=== PATIENT | male | born 1985 | race Caucasian/White ===

== ENCOUNTER 2017-02-05 22:42 | Emergency (ER) | payer SELFPAY ==
[~2017-02-05] VITALS: Ht 185.4 cm; Wt 77.2 kg
[~2017-02-05 22:42] MED LIST: Z.0.NO CURRENT MEDS
[2017-02-05 22:47] VITALS: BP 131/73; PULSE 96; RESP 18; TEMP 97.4; O2SAT 94
[2017-02-05 23:12] VITALS: BP 151/78; PULSE 100; RESP 12; O2SAT 94
[2017-02-05] MEDS ORDERED: SODIUM CHLORIDE 0.9% FLUSH 5 ML FLUSH IVF PRN (23:15)
--- NOTE | 2017-02-05 23:17 | PD ---
HPI Chief Complaint: Psychiatric Symptoms Time Seen by Provider: 23:01 Travel History International Travel<30 days: No Contact w/Intl Traveler<30days: No Traveled to known affect area: No History of Present Illness HPI Patient is a 31-year-old male who presents to emergency room for psychiatric evaluation. Patient reports that he is an alcoholic, reports that he is a danger to himself as well as others, patient currently requesting help. Patient denies active SI, reports that "I'm just danger to myself and to others if I do not get help with my drinking." Denies use of any other drugs at this time. Patient with no other complaints. PFSH Past Medical History Anxiety: Yes Depression: Yes Musculoskeletal: Yes (BACK PROBLEMS) Psychiatric: Yes Social History Alcohol Use: Yes (OCCASIONALLY DRINKS A 6 PACK) Tobacco Use: Yes (1PPD) Substance Use: Yes (COCAINE YESTERDAY, USES APPROX Q2WKS, HASN'T DONE WEED IN AWHILE.) Allergies-Medications (Allergen,Severity, Reaction): Coded Allergies: No Known Allergies (Verified , 02/05/17) Reported Meds & Prescriptions Reported Meds & Active Scripts Active Reported No Current Meds (Miscellaneous Medication) Misc Review of Systems General / Constitutional: No: Fever Eyes: No: Visual changes HENT: No: Headaches Cardiovascular: No: Chest Pain or Discomfort Respiratory: No: Shortness of Breath Gastrointestinal: No: Abdominal Pain Genitourinary: No: Dysuria Musculoskeletal: No: Pain Skin: No Rash Neurologic: No: Weakness Psychiatric: Positive: Depression, Suicidal Ideations, Mood Disorder, Substance Abuse, Homicidal Ideation Endocrine: No: Polydipsia Hematologic/Lymphatic: No: Easy Bruising Physical Exam Narrative GENERAL: No acute distress, nontoxic SKIN: Warm and dry. HEAD: Atraumatic. Normocephalic. EYES: Pupils equal and round. No scleral icterus. No injection or drainage. ENT: No nasal bleeding or discharge. Mucous membranes pink and moist. NECK: Trachea midline. No JVD. CARDIOVASCULAR: Regular rate and rhythm. No murmur appreciated. RESPIRATORY: No accessory muscle use. Clear to auscultation. Breath sounds equal bilaterally. GASTROINTESTINAL: Abdomen soft, non-tender, nondistended. Hepatic and splenic margins not palpable. MUSCULOSKELETAL: No obvious deformities. No clubbing. No cyanosis. No edema. NEUROLOGICAL: Awake and alert. No obvious cranial nerve deficits. Motor grossly within normal limits. Normal speech. PSYCHIATRIC: Patient with suicidal and homicidal ideations, patient intoxicated Data Data Last Documented VS Vital Signs Date Time Temp Pulse Resp B/P Pulse Ox O2 Delivery O2 Flow Rate FiO2 02/05/17 23:12 100 12 151/78 94 Room Air 02/05/17 22:47 97.4 Orders Complete Blood Count With Diff (02/05/17 23:12) Comprehensive Metabolic Panel (02/05/17 23:12) Iv Access Insert/Monitor (02/05/17 23:12) Psych Screen (02/05/17 23:12) Sodium Chloride 0.9% Flush (Ns Flush) (02/05/17 23:15) Drug Screen, Random Urine (02/05/17 23:12) Alcohol (Ethanol) (02/05/17 23:12) Labs Laboratory Tests Test 02/05/17 23:25 White Blood Count 8.2 TH/MM3 Red Blood Count 4.01 MIL/MM3 Hemoglobin 14.4 GM/DL Hematocrit 41.3 % Mean Corpuscular Volume 103.1 FL Mean Corpuscular Hemoglobin 35.8 PG Mean Corpuscular Hemoglobin 34.7 % Concent Red Cell Distribution Width 12.6 % Platelet Count 250 TH/MM3 Mean Platelet Volume 6.7 FL Neutrophils (%) (Auto) 40.7 % Lymphocytes (%) (Auto) 45.9 % Monocytes (%) (Auto) 7.5 % Eosinophils (%) (Auto) 5.0 % Basophils (%) (Auto) 0.9 % Neutrophils # (Auto) 3.3 TH/MM3 Lymphocytes # (Auto) 3.8 TH/MM3 Monocytes # (Auto) 0.6 TH/MM3 Eosinophils # (Auto) 0.4 TH/MM3 Basophils # (Auto) 0.1 TH/MM3 CBC Comment DIFF FINAL Differential Comment Urine Opiates Screen NEG Urine Barbiturates Screen NEG Urine Amphetamines Screen NEG Urine Benzodiazepines Screen NEG Urine Cocaine Screen NEG Urine Cannabinoids Screen POS Sodium Level 143 MEQ/L Potassium Level 4.2 MEQ/L Chloride Level 109 MEQ/L Carbon Dioxide Level 24.0 MEQ/L Anion Gap 10 MEQ/L Blood Urea Nitrogen 20 MG/DL Creatinine 2.00 MG/DL Estimat Glomerular Filtration 39 ML/MIN Rate Random Glucose 107 MG/DL Calcium Level 8.1 MG/DL Total Bilirubin 0.1 MG/DL Aspartate Amino Transf 33 U/L (AST/SGOT) Alanine Aminotransferase 41 U/L (ALT/SGPT) Alkaline Phosphatase 57 U/L Total Protein 7.2 GM/DL Albumin 3.6 GM/DL Ethyl Alcohol Level 262 MG/DL MDM Medical Decision Making Medical Screen Exam Complete: Yes Emergency Medical Condition: Yes Interpretation(s) Vital Signs Date Time Temp Pulse Resp B/P Pulse Ox O2 Delivery O2 Flow Rate FiO2 02/05/17 22:47 97.4 96 18 131/73 94 Differential Diagnosis Alcohol intoxication, drug abuse, suicidal ideations, homicidal ideations Narrative Course Patient is a 31-year-old alcoholic who presents to emergency room for psychiatric evaluation. Patient feels that his alcoholism makes him a danger to himself as well as to others. Patient here for psychiatric evaluation. Psychiatric labs ordered, will have patient see screeners once medically cleared Diagnosis Primary Impression: Alcohol abuse Additional Impressions: Depression Qualified Code: F32.9 - Depression, unspecified depression type Suicidal ideation Homicidal ideation Renal insufficiency Drug abuse Alcohol intoxication Qualified Code: F10.120 - Alcohol intoxication, uncomplicated Patient Instructions: General Instructions Additional Instructions: Please follow-up with your primary care doctor as soon as possible Return to emergency room as needed Please stop drinking alcohol and abusing drugs Adriana Lan DO Feb 05, 2017 23:17 Adriana Lan DO Feb 05, 2017 23:17
[2017-02-05 23:40] LABS: AUTOMATED NEUTROPHIL # 3.3 TH/MM3 (1.8-7.7); BASOPHIL # 0.1 TH/MM3 (0-0.2); BASOPHIL % 0.9 % (0.0-2.0); EOSINOPHIL # 0.4 TH/MM3 (0-0.4); HEMATOCRIT 41.3 % (39.0-51.0); HEMO FLAGS DIFF FINAL; LYMPH % 45.9 % (9.0-44.0); LYMPHOCYTE # 3.8 TH/MM3 (1.0-4.8); MEAN CELL VOLUME 103.1 FL (80.0-100.0); MEAN CORPUSCULAR HEMOGLOBIN 35.8 PG (27.0-34.0); MEAN CORPUSCULAR HGB CONC 34.7 % (32.0-36.0); MONO % 7.5 % (0.0-8.0); NEUT % 40.7 % (16.0-70.0); PLATELET COUNT 250 TH/MM3 (150-450); RED BLOOD COUNT 4.01 MIL/MM3 (4.50-5.90); RED CELL DISTRIBUTION WIDTH 12.6 % (11.6-17.2); WHITE BLOOD COUNT 8.2 TH/MM3 (4.0-11.0)
[2017-02-05 23:45] LABS: AMPHETAMINE, URINE NEG (NEG); BARBITURATES, URINE NEG (NEG); COCAINE, URINE NEG (NEG)
[2017-02-05 23:55] LABS: ANION GAP 10 MEQ/L (5-15)
[2017-02-05 23:59] LABS: ALKALINE PHOSPHATASE 57 U/L (45-117); ALT (GPT) 41 U/L (12-78); AST (GOT) 33 U/L (15-37); BLOOD UREA NITROGEN 20 MG/DL (7-18); CHLORIDE 109 MEQ/L (98-107); GLOMERULAR FILTRATION RATE 39 ML/MIN (>89); POTASSIUM 4.2 MEQ/L (3.5-5.1); SODIUM (NA) 143 MEQ/L (136-145); TOTAL BILIRUBIN ADULT 0.1 MG/DL (0.2-1.0)
[2017-02-06 00:47] VITALS: BP 136/83; PULSE 96; RESP 18; O2SAT 95
[2017-02-06 02:17] VITALS: BP 137/80; PULSE 95; RESP 18; O2SAT 97
[2017-02-06 06:21] VITALS: BP 114/72; PULSE 88; RESP 18; O2SAT 97
[2017-02-06 11:08] VITALS: BP 160/97; PULSE 72; RESP 16; TEMP 98.2; O2SAT 98
--- NOTE | 2017-02-06 13:22 | PD ---
History of Present Illness Chief Complaint: Psychiatric Symptoms Time Seen by Provider: 13:10 Travel History International Travel<30 Days: No Contact w/Intl Traveler<30days: No Known affected area: No Legal Status Legal Status: Voluntary History of Present Illness: History of Present Illness HPI Patient is a 31-year-old male who presents to emergency room on a voluntary status for psychiatric evaluation. As per ed documentation included i this report " reports that he is an alcoholic, reports that he is a danger to himself as well as others, patient currently requesting help. Patient denies active SI, reports that "I'm just danger to myself and to others if I do not get help with my drinking." Denies use of any other drugs at this time. Patient presents with BAL of 262 and positive toxicology for cannabinoids. As pre EMR review he has a history of substance abuse with past ed visits for overdoes on cough medication. His last visit for this was in 2007. Patient was monitored in J pod until he was clinically sober. He did not present any behavioral concerns. Patient at this time is alert,oriented, calm and engaging male who appears stated age. He is not demonstrating any symptom of withdrawal. He denies any hallucinations, no delusions and no paranoia. He does not report any suicidal or homicidal ideation,intent or plan. He states that he wants to be detoxed from alcohol at this time as he is tired of the cycle that he is in. [facility] Past Medical History Anxiety: Yes Depression: Yes Diminished Hearing: No Musculoskeletal: Yes (BACK PROBLEMS) Psychiatric: Yes Tetanus Vaccination: Unknown Past Surgical History Surgical History: No Previous Surgery Psychiatric History Psychiatric History Hx Psychiatric Treatment: [facility] after his deployment to [place].. States that he has a cyanide case hardener named Leroy. History of Inpatient Treatment: No Guns or firearms in home: No Social History Single male. Originally from [place]. 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 ) Substance Use Type: Alcohol, Marijuana, Nicotine/Cigarettes, Cough-Cold Pills, Other Hx of Substance Use Treatment: Yes Family Psychiatric History None rpeorted Allergies-Medications (Allergen,Severity, Reaction): Coded Allergies: No Known Allergies (Verified , 02/05/17) Reported Meds & Prescriptions Reported Meds & Active Scripts Active No Active Prescriptions or Reported Medications Review of Systems Except as stated in HPI: all other systems reviewed are Neg Exam Alert: Yes [place]: Person (ox4) Mood: Calm Affect: Euthymic Speech: Clear, Logical Eye Contact: Normal Memory Intact: Comment (no impairment) Hallucinations: Other (negative ) Suicidal: Ideation (denies any) Homicidal: Ideation (deneis any) Insight/Judgement Fair. Fair [facility] Medical Decision Making Medical Record Reviewed: Yes Assessment/Plan 31 year old male on a voluntary basis requesting assistance with alcohol detoxification. He is not suicidal or homicidal and there is no acute psychiatric symptoms. he is referred to [facility]. . Orders Complete Blood Count With Diff (02/05/17 23:12) Comprehensive Metabolic Panel (02/05/17 23:12) Iv Access Insert/Monitor (02/05/17 23:12) Psych Screen (02/05/17 23:12) Sodium Chloride 0.9% Flush (Ns Flush) (02/05/17 23:15) Drug Screen, Random Urine (02/05/17 23:12) Alcohol (Ethanol) (02/05/17 23:12) Diet Regular Basic (02/06/17 Breakfast) Diet Regular Basic (02/06/17 Lunch) Results Vital Signs Date Time Temp Pulse Resp B/P Pulse Ox O2 Delivery O2 Flow Rate FiO2 02/06/17 11:08 98.2 72 16 160/97 98 Room Air 02/06/17 06:21 88 18 114/72 97 Room Air 02/06/17 02:17 95 18 137/80 97 Room Air 02/06/17 00:47 96 18 136/83 95 Room Air 02/05/17 23:12 100 12 151/78 94 Room Air 02/05/17 22:47 97.4 96 18 131/73 94 Laboratory Tests Test 02/05/17 23:25 White Blood Count 8.2 Red Blood Count 4.01 Hemoglobin 14.4 Hematocrit 41.3 Mean Corpuscular Volume 103.1 Mean Corpuscular Hemoglobin 35.8 Mean Corpuscular Hemoglobin 34.7 Concent Red Cell Distribution Width 12.6 Platelet Count 250 Mean Platelet Volume 6.7 Neutrophils (%) (Auto) 40.7 Lymphocytes (%) (Auto) 45.9 Monocytes (%) (Auto) 7.5 Eosinophils (%) (Auto) 5.0 Basophils (%) (Auto) 0.9 Neutrophils # (Auto) 3.3 Lymphocytes # (Auto) 3.8 Monocytes # (Auto) 0.6 Eosinophils # (Auto) 0.4 Basophils # (Auto) 0.1 CBC Comment DIFF FINAL Differential Comment Urine Opiates Screen NEG Urine Barbiturates Screen NEG Urine Amphetamines Screen NEG Urine Benzodiazepines Screen NEG Urine Cocaine Screen NEG Urine Cannabinoids Screen POS Sodium Level 143 Potassium Level 4.2 Chloride Level 109 Carbon Dioxide Level 24.0 Anion Gap 10 Blood Urea Nitrogen 20 Creatinine 2.00 Estimat Glomerular Filtration 39 Rate Random Glucose 107 Calcium Level 8.1 Total Bilirubin 0.1 Aspartate Amino Transf 33 (AST/SGOT) Alanine Aminotransferase 41 (ALT/SGPT) Alkaline Phosphatase 57 Total Protein 7.2 Albumin 3.6 Ethyl Alcohol Level 262 Diagnosis Primary Impression: Alcohol abuse Additional Impressions: Alcohol intoxication Drug abuse Suicidal ideation Depression Renal insufficiency Homicidal ideation Psychiatrically Cleared: Yes Patient Instructions: General Instructions Additional Instructions: Please follow-up with your primary care doctor as soon as possible Return to emergency room as needed Please stop drinking alcohol and abusing drugs Prescriptions No Active Prescriptions or Reported Meds Disposition: 01 DISCHARGE HOME Condition: Stable Problem Qualifiers Additional Impressions: Alcohol intoxication Qualified Code: F10.120 - Alcohol intoxication, uncomplicated Depression Qualified Code: F32.9 - Depression, unspecified depression type Gali Washington Feb 06, 2017 13:21
[2017-02-06 13:26] VITALS: BP 160/97; PULSE 72; RESP 16; O2SAT 98
== END 2017-02-06 14:06 | disposition home or self-care (01) ==
LOC: EDBD → NEPA 22:42 → NEPJ 02-06 14:06
DX: F10.129 Alcohol abuse with intoxication, unspecified (principal); F41.8 Other specified anxiety disorders; F14.90 Cocaine use, unspecified, uncomplicated; R45.851 Suicidal ideations; R45.850 Homicidal ideations; N28.9 Disorder of kidney and ureter, unspecified; F17.210 Nicotine dependence, cigarettes, uncomplicated; Y90.8 Blood alcohol level of 240 mg/100 ml or more
CPT/HCPCS: 80053; 80307; 85025; 99284

== ENCOUNTER 2017-03-07 18:54 | Emergency (ER) | payer SELFPAY ==
[~2017-03-07] VITALS: Ht 180.3 cm; Wt 65.0 kg
[2017-03-07 19:08] VITALS: BP 133/76; PULSE 80; RESP 16; TEMP 98; O2SAT 99
--- NOTE | 2017-03-07 19:44 | PD ---
HPI Chief Complaint: Alcohol/Drug Intoxication Time Seen by Provider: 19:40 Travel History International Travel<30 days: No Contact w/Intl Traveler<30days: No Traveled to known affect area: No History of Present Illness HPI Patient comes in for evaluation status post trip and fall. Patient states he's been drinking today and he tripped and fell landing flat on his face. Complaining of a headache. Patient doing anything for this prior coming to the emergency department. Patient reports tetanus shot is not up-to-date. Denies any neck pain, numbness or tingling anywhere, loss of bowel or bladder, chest pain, change in vision, dizziness, nausea, vomiting, or shortness of breath. Patient states he drinks regularly and only wanted was some ibuprofen, but EMS was called instead. Patient reports multiple people witness the trip and fall. Denies any loss consciousness. PFSH Past Medical History Anxiety: Yes Depression: Yes Diminished Hearing: No Musculoskeletal: Yes (BACK PROBLEMS) Psychiatric: Yes Social History Alcohol Use: Yes (24 pack per day) Tobacco Use: Yes (1PPD) Substance Use: Yes (ETOH - case daily per pt. ) Allergies-Medications (Allergen,Severity, Reaction): Coded Allergies: No Known Allergies (Verified , 03/07/17) Reported Meds & Prescriptions Reported Meds & Active Scripts Active No Active Prescriptions or Reported Medications Review of Systems Except as stated in HPI: all other systems reviewed are Neg Physical Exam Narrative GENERAL: Well-developed, well nourished, in no acute distress, and non-ill appearing. SKIN: Focused skin assessment warm and dry. Multiple superficial nonrepairable abrasions noted to the face. HEAD: Atraumatic. Normocephalic. EYES: Pupils equal and round. EOMI. No scleral icterus. No injection or drainage. ENT: No nasal bleeding or discharge. Mucous membranes pink and moist. There is no flattening of the cheek, bruising under the tongue, or septal hematoma appreciated. NECK: Trachea midline. Supple. No nuclear rigidity. CARDIOVASCULAR: Regular rate and rhythm. No murmur appreciated. Radial pulses 2+, tach, and equal bilaterally. RESPIRATORY: No accessory muscle use. No respiratory distress. Clear to auscultation. Breath sounds equal bilaterally. GASTROINTESTINAL: Abdomen soft, non-tender, nondistended. Hepatic and splenic margins not palpable. No pulsatile mass. MUSCULOSKELETAL: No obvious deformities. No clubbing. No cyanosis. No edema. Full range of motion. Shoulder:FROM equal BL with passive flexion, extension, Abduction, Adduction, internal/external rotation, and pronation/supination. Sensation equal BL deltoid muscles. Pulses equal BL distal to injury. Capillary refill less than 2 seconds distal to injury and equal BL. FROM distal to injury and equal BL. Strength distal to injury equal BL. NV intact distal to injury equal BL. Flexion and extension of thumb equal BL. Equal strength and movement with abduction/adductions of BL fingers. Top Loader strength equal BL. NEUROLOGICAL: Awake and alert. No obvious cranial nerve deficits. Motor grossly within normal limits. Slightly slurred speech. PSYCHIATRIC: Appropriate mood and affect; insight and judgment normal. Data Data Last Documented VS Vital Signs Date Time Temp Pulse Resp B/P Pulse Ox O2 Delivery O2 Flow Rate FiO2 03/07/17 19:08 98.0 80 16 133/[address] Brain W/O Iv Contrast(Rout) (03/07/17 ) Ct Cerv Spine W/O Contrast (03/07/17 ) Ct Facial Bones W/O Iv Cont (03/07/17 ) Ice/Cold Pack (03/07/17 19:38) Wound Care (03/07/17 19:38) Acetaminophen (Tylenol) (03/07/17 19:45) Tetanus/Diphtheria Tox Adult (Tetanus/Di (03/07/17 19:45) MDM Medical Decision Making Medical Screen Exam Complete: Yes Emergency Medical Condition: Yes Differential Diagnosis Fracture, contusion, strain, abrasion, laceration, intracranial hemorrhage, alcohol intoxication, alcohol abuse, other Narrative Course Patient presents with closed head injury. There was no evidence of cranial or intracranial injury noted on CT of the head and no evidence of fracture or injury to cervical spine on C-spine CT. The patient has been behaving normally and no notable altered mental status. Delfino score of 15. The neurologic exam is normal. The patient is awake and aware and motor sensory exams are normal. There is no clinical evidence to support intracranial injury or bleed. There is no significant jaw pain or tenderness. There is no malocclusion noted subjectively or objectively. There is no bruising under the tongue. There is no significant swelling, tenderness, bruising or deformity of the face to suggest fractures of face or nose. There is no nasal discharge or bleeding and no septal hematoma. There are no visual problems or significant bruising under eyes or midface. There is no evidence to suggest entrapment and there is no facial nerve palsy. There is no flattening of the cheek or altered sensation underneath the eye. The facial bones are stable and nonmobile. The airway is intact. Findings were discussed with the patient. The patient was instructed on pain medication, ice packs and elevation of head. The patient agreed with plan of care and management and will follow up with PCP. The patient suffered abrasions. The abrasions are very superficial and nonrepairable. There was no evidence to suggest foreign bodies. Visual and tactile exams were unremarkable. There was no evidence of neurovascular injury as well. The patients wounds were cleaned. The patient was given signs and symptom warnings for infection, such as increasing pain, redness, swelling, associated heat, pus or fever. The patient was given instructions for timely follow up. The patient agreed with plan of care. Patient in no obvious distress upon re-evaluation. All pertinent Radiology result(s) discussed with patient including the old nasal bone fracture and incidental findings noted on CT cervical spine. I discussed patient with Dr. Westbrook prior to discharge, who is in agreement with plan of care and disposition. Any questions/concerns in reference to patient diagnosis/ condition discussed and clarified prior to patient's discharge. Reinforced sheer importance of close follow up with patient's primary physician or primary care clinic. Instructed patient to return to ED immediately, if symptoms return/ worsen. Pt showed understanding of above instructions. Further instructions and recommendations were detailed in discharge paperwork. Pt ambulated without difficulty out of ED at discharge. Diagnosis Primary Impression: Contusion of face Qualified Code: S00.83XA - Contusion of face, initial encounter Additional Impressions: Facial abrasion Qualified Code: S00.81XA - Facial abrasion, initial encounter Head injury Qualified Code: S09.90XA - Head injury, initial encounter Patient Instructions: Abrasion (GEN), Facial Contusion (ED), General Instructions, Head Injury (ED) Additional Instructions: Follow-up with your primary care physician in 2-3 days for reevaluation. Follow with ENT evaluation previous nasal fracture. Use [id number] Tylenol and/or ibuprofen as needed for pain. Follow instructions on the packaging. Apply ice to affected area 20 minutes per hour as needed for pain. Sleep at a angle of at least 30 or higher to decrease pain and swelling to the face. Keep wound dry and clean as possible using soap and water. Use Neosporin to promote healing. Return to the emergency department if symptoms get worse. Scripts No Active Prescriptions or Reported Meds Disposition: 01 DISCHARGE HOME Condition: Stable Anselmo Quiroz Mar 07, 2017 19:44
[2017-03-07] MEDS ORDERED: TETANUS/DIPHTHERIA TOXOID ADULT 0.5 ML VIAL IM ONE (19:45)
[2017-03-07] MEDS ORDERED: ACETAMINOPHEN 325 MG TAB PO ONE (19:45)
--- NOTE | 2017-03-07 20:53 | RADRPT ---
EXAM DATE/TIME: 03/07/2017 20:14 [facility] COMPARISON: No previous studies available for comparison. INDICATIONS : Fall with head trauma. RADIATION DOSE: 33.50 CTDIvol (mGy) MEDICAL HISTORY : None SURGICAL HISTORY : None. ENCOUNTER: Initial ACUITY: 1 day PAIN SCALE: 7/10 LOCATION: cranial TECHNIQUE: Multiple contiguous axial images were obtained of the head. Using automated exposure control and adj ustment of the mA and/or kV according to patient size, radiation dose was kept as low as reasonably a chievable to obtain optimal diagnostic quality images. FINDINGS: CEREBRUM: The ventricles are normal for age. No evidence of midline shift, mass lesion, hemorrhage or acute in farction. No extra-axial fluid collections are seen. POSTERIOR FOSSA: The cerebellum and brainstem are intact. The 4th ventricle is midline. The cerebellopontine angle i s unremarkable. EXTRACRANIAL: The visualized portion of the orbits is intact. SKULL: The calvaria is intact. No evidence of skull fracture. CONCLUSION: Normal examination. Mk Giles MD on March 07, 2017 at 20:51 Board Certified Radiologist. This report was verified electronically.
--- NOTE | 2017-03-07 20:57 | RADRPT ---
EXAM DATE/TIME: 03/07/2017 20:14 [facility] COMPARISON: No previous studies available for comparison. INDICATIONS : Fall with head trauma and neck pain. RADIATION DOSE: 18.79 CTDIvol (mGy) MEDICAL HISTORY : None SURGICAL HISTORY : None. ENCOUNTER: Initial ACUITY: 1 day PAIN SCALE: 7/10 LOCATION: neck TECHNIQUE: Volumetric scanning of the cervical spine was performed. Multiplanar reconstructions in the sagittal, coronal and oblique axial planes were performed. Using automated exposure control and adjustment o f the mA and/or kV according to patient size, radiation dose was kept as low as reasonably achievable to obtain optimal diagnostic quality images. FINDINGS: VERTEBRAE: Normal vertebral body height. There is fragmentation at the posterior aspect of the T1 spinous proces s. The margins at this defect appear corticated suggesting this is likely chronic. ALIGNMENT: No evidence of subluxation. C2-C3: The bony spinal canal is normal in size. No evidence of disc bulge or herniation. The neural forami na are bilaterally patent. C3-C4: The bony spinal canal is normal in size. No evidence of disc bulge or herniation. The neural forami na are bilaterally patent. C4-C5: The bony spinal canal is normal in size. No evidence of disc bulge or herniation. The neural forami na are bilaterally patent. C5-C6: The bony spinal canal is normal in size. No evidence of disc bulge or herniation. The neural forami na are bilaterally patent. C6-C7: There is a moderate left lateral recess disc protrusion. The bony spinal canal is normal in size. Th e neural foramina are bilaterally patent. C7-T1: The bony spinal canal is normal in size. No evidence of disc bulge or herniation. The neural forami na are bilaterally patent. CONCLUSION: 1. Moderate left lateral recess disc protrusion at the C6-C7 level. 2. Fragmentation at the posterior aspect of the T1 spinous process. The margins appear corticated sug gesting this is likely chronic. Mk Giles MD on March 07, 2017 at 20:51 Board Certified Radiologist. This report was verified electronically.
--- NOTE | 2017-03-07 21:29 | RADRPT ---
EXAM DATE/TIME: 03/07/2017 20:14 [place] COMPARISON: No previous studies available for comparison. INDICATIONS : Fall with head and facial trauma. RADIATION DOSE: 55.32 CTDIvol (mGy) MEDICAL HISTORY : None SURGICAL HISTORY : None. ENCOUNTER: Initial ACUITY: 1 day PAIN SCORE: 7/10 LOCATION: Bilateral facial TECHNIQUE: Volumetric scanning of the facial bones was performed. Using automated exposure contr ol and adjustment of the mA and/or kV according to patient size, radiation dose was kept as low as re asonably achievable to obtain optimal diagnostic quality images. FINDINGS: There is a defect at the lateral left maxilla. Lateral aspect of the left maxilla appe ars somewhat thickened suggesting this may be from a prior injury. No fluid is seen in the left maxi llary sinus. There also appears to be some deformity at the distal aspect of the nasal bones with luz e minimal displacement towards the left. The age of this deformity is not known. There is increased density with a suspected air-fluid level seen at the right sphenoid sinus. There is also some minim al focal mucosal disease at a left anterior ethmoid air cell. The remaining aspects of the sinuses ap pear grossly clear. The orbits appear intact. Significant soft-tissue swelling is not seen. CONCLUSION: 1. Questionable deformity at the nasal bones. The age of this deformity is not known. The distal asp ect of the nasal bones appear slightly deviated towards the left. 2. Defect at the lateral left maxilla with some thickening of the lateral maxilla in this region sugg esting there may have been a prior injury in this region. No fluid is seen within the left maxillary sinus. 3. Air-fluid level in the right sphenoid sinus. Mk Giles MD on March 07, 2017 at 20:56 Board Certified Radiologist. This report was verified electronically.
== END 2017-03-07 23:07 | disposition home or self-care (01) ==
LOC: NEPD 18:54
DX: S00.83XA Contusion of other part of head, initial encounter (principal); S00.81XA Abrasion of other part of head, initial encounter; S09.90XA Unspecified injury of head, initial encounter; F17.210 Nicotine dependence, cigarettes, uncomplicated; F10.10 Alcohol abuse, uncomplicated; Y93.9 Activity, unspecified; W01.10XA Fall on same level from slipping, tripping and stumbling with subsequent striking against unspecified object, initial encounter; Z23 Encounter for immunization
CPT/HCPCS: 70450; 70486; 72125; 90471; 90714

== ENCOUNTER 2017-03-22 11:00 | Emergency (ER) | payer SELFPAY ==
[~2017-03-22] VITALS: Ht 185.4 cm; Wt 75.0 kg
[2017-03-22 11:01] VITALS: BP 140/86; PULSE 74; RESP 16; TEMP 98.7; O2SAT 99
[2017-03-22] MEDS ORDERED: PRAZ2CAP PO (11:14)
[2017-03-22] MEDS ORDERED: TRAZ100T4 PO (11:14)
[2017-03-22] MEDS ORDERED: ZOLO50TA PO (11:14)
[2017-03-22] MEDS ORDERED: PERI0.126 SWISH-SPIT (11:33)
[2017-03-22] MEDS ORDERED: AMOX500C PO (11:33)
[2017-03-22] MEDS ORDERED: IBUP800T23 PO (11:33)
--- NOTE | 2017-03-22 11:34 | PD ---
HPI Chief Complaint: Oral / Dental Pain or Problem Time Seen by Provider: 11:31 Travel History International Travel<30 days: No Contact w/Intl Traveler<30days: No Traveled to known affect area: No History of Present Illness HPI 31-year-old male presents to the emergency Department with complaint of his left upper wisdom tooth breaking off this morning and is causing pain. Denies trauma. Denies fever, chills, nausea, vomiting. Denies facial swelling or erythema. Has taken non-aspirin with minimal pain relief. No known allergies. No other modifying factors or associated signs and symptoms. PFSH Past Medical History Anxiety: Yes Depression: Yes Diminished Hearing: No Musculoskeletal: Yes (BACK PROBLEMS) Psychiatric: Yes Tetanus Vaccination: < 5 Years Social History Alcohol Use: No (24 pack per day PT DENIES) Tobacco Use: Yes (1PPD) Substance Use: Yes (ETOH - case daily per pt. ) Allergies-Medications (Allergen,Severity, Reaction): Coded Allergies: No Known Allergies (Verified , 03/22/17) Reported Meds & Prescriptions Reported Meds & Active Scripts Active Ibuprofen 800 Mg Tab 800 Mg PO Q6HR PRN Peridex Liq (Chlorhexidine Gluconate (Mouth) Liq) 0.12% Soln 15 Ml SWISH-SPIT BID 10 Days Amoxicillin 500 Mg Cap 500 Mg PO BID 10 Days Reported Prazosin (Prazosin HCl) 2 Mg Cap 2 Mg PO HS Zoloft (Sertraline HCl) Unknown Strength Tab Unknown Dose PO DAILY Trazodone (Trazodone HCl) 100 Mg Tab 100 Mg PO HS Review of Systems Except as stated in HPI: all other systems reviewed are Neg Physical Exam Narrative GENERAL: Well-nourished, well-developed male patient, in no acute distress; afebrile, nontoxic-appearing SKIN: Warm and dry. HEAD: Atraumatic. Normocephalic. No facial edema, erythema, tenderness on palpation. No lymphadenopathy. EYES: Pupils equal and round. No scleral icterus. No injection or drainage. ENT: Mucosa pink and moist. Airway patent. MOUTH: Mucous membranes moist, no lesions, tongue and gums appear normal. Left upper third molar is absent and the areas with tenderness on palpation; no obvious abscess noted; gingiva is without erythema, edema, drainage. NECK: Trachea midline. No lymphadenopathy. CARDIOVASCULAR: Regular rate. RESPIRATORY: No accessory muscle use. GASTROINTESTINAL: Flat. MUSCULOSKELETAL: No obvious deformities. No clubbing. No cyanosis. No edema. NEUROLOGICAL: Awake and alert. Oriented 3. No obvious cranial nerve deficits. Motor grossly within normal limits. Normal speech. PSYCHIATRIC: Appropriate mood and affect; insight and judgment normal. Data Data Last Documented VS Vital Signs Date Time Temp Pulse Resp B/P Pulse Ox O2 Delivery O2 Flow Rate FiO2 03/22/17 11:01 98.7 74 16 140/86 99 Room Air MDM Medical Decision Making Medical Screen Exam Complete: Yes Emergency Medical Condition: Yes Medical Record Reviewed: Yes Differential Diagnosis Dentalgia, dental abscess, infected dental caries Narrative Course 31-year-old male with dentalgia to the left upper wisdom tooth area; the tooth is absent in the gingiva is with tenderness on palpation. There is no dental trauma but the tooth broke off this morning per the patient. No facial erythema or edema. Patient is afebrile and nontoxic-appearing. He denies fever , chills, nausea, vomiting. Emergency dental information sheet provided. Instructed patient to follow up with dentist. Amoxicillin, ibuprofen, Peridex mouth rinse prescribed for home. Patient verbalizes understanding and agreement with treatment plan. Patient is medically cleared and stable for discharge. Discussed reasons to return to the emergency department. Instructed patient to follow up with primary care provider. Patient agrees with treatment plan. The patients vital signs are stable and the patient is stable for outpatient follow-up and treatment. Patient discharged home, stable and in no acute distress. Diagnosis Primary Impression: Dentalgia Referrals: Dentist Primary Care Physician Patient Instructions: Acute Dental Trauma (ED), Dental Abscess (ED), Dental Caries (ED), General Instructions, Toothache (ED) Departure Forms: Tests/Procedures, Work Release Enter return to work date: Mar 23, 2017 Additional Instructions: Complete full course of antibiotics Ibuprofen as directed and as needed to reduce pain and inflammation Use Peridex as directed for oral hygiene Warm compresses to the affected area Follow-up with dentist Follow-up with primary care provider Return to emergency department immediately with worsening of symptoms Med/Other Pt SpecificInfo: Prescription(s) given Scripts Ibuprofen 800 Mg [id number] Mg PO Q6HR PRN (PAIN) #30 TAB Ref 0 Prov:Zelda Burnham MUSIC EDUCATION DIRECTOR 03/22/17 Chlorhexidine Gluconate (Mouth) Liq (Peridex Liq)0.12% Soln15 Ml SWISH-SPIT BID 10 Days Ref 0 Prov:Zelda Burnham 03/22/17 Amoxicillin 500 Mg [id number] Mg PO BID 10 Days Ref 0 Prov:Zelda Burnham 03/22/17 Disposition: 01 DISCHARGE HOME Condition: Stable Zelda Burnham Mar 22, 2017 11:33
== END 2017-03-22 11:55 | disposition home or self-care (01) ==
LOC: NEPK 11:00
DX: K08.89 Other specified disorders of teeth and supporting structures (principal); M84.68XA Pathological fracture in other disease, other site, initial encounter for fracture; F41.8 Other specified anxiety disorders; X58.XXXA Exposure to other specified factors, initial encounter
CPT/HCPCS: 99282

== ENCOUNTER 2017-07-12 02:15 | Emergency (ER) | payer SELFPAY ==
[~2017-07-12] VITALS: Ht 180.3 cm; Wt 75.0 kg
[~2017-07-12 02:15] MED LIST changes: +AMOX500C PO; +IBUP800T23 PO; +PERI0.126 SWISH-SPIT; +PRAZ2CAP PO; +TRAZ100T4 PO; -Z.0.NO CURRENT MEDS; +ZOLO50TA PO
[2017-07-12 02:18] VITALS: BP 141/85; PULSE 85; RESP 16; TEMP 97.9; O2SAT 98
--- NOTE | 2017-07-12 03:40 | PD ---
HPI Chief Complaint: Psychiatric Symptoms Time Seen by Provider: 03:09 Travel History International Travel<30 days: No Contact w/Intl Traveler<30days: No Traveled to known affect area: No History of Present Illness HPI Patient is a 31 year old male who comes in because he wants to go to [facility] to get back on his psychiatric medications. He admits to drinking alcohol tonight. He has no medical complaints. He says he asked the police to take him to [facility], and he is mad that they brought him here. PFSH Past Medical History Bipolar Disorder: Yes Anxiety: Yes Depression: Yes Diminished Hearing: No Musculoskeletal: Yes (BACK PROBLEMS) Psychiatric: Yes (PTSD) Tetanus Vaccination: < 5 Years Influenza Vaccination: No Social History Alcohol Use: No (" MUCH I CAN") Tobacco Use: Yes (1PPD OR MORE) Substance Use: Yes ("ETOH, POT, DILAUDID, METH, CRACK") Allergies-Medications (Allergen,Severity, Reaction): Coded Allergies: No Known Allergies (Verified , 03/22/17) Reported Meds & Prescriptions Reported Meds & Active Scripts Active No Active Prescriptions or Reported Medications Review of Systems General / Constitutional: No: Fever, Chills Eyes: No: Blurred Vision HENT: No: Headaches, Lightheadedness Cardiovascular: No: Chest Pain or Discomfort Respiratory: No: Shortness of Breath Gastrointestinal: No: Nausea, Vomiting, Abdominal Pain Musculoskeletal: No: Myalgias, Edema Skin: No Rash, No Change in Pigmentation Neurologic: No: Weakness, Dizziness Psychiatric: No: Suicidal Ideations Physical Exam Narrative GENERAL: Awake and alert, in no acute distress. AOB SKIN: Focused skin assessment warm/dry. HEAD: Atraumatic. Normocephalic. EYES: Pupils equal and round. No scleral icterus. EOMI ENT: Mucous membranes pink and moist. CARDIOVASCULAR: Regular rate and rhythm. No murmur appreciated. RESPIRATORY: No accessory muscle use. Clear to auscultation. Breath sounds equal bilaterally. GASTROINTESTINAL: Abdomen soft, non-tender, nondistended. Hepatic and splenic margins not palpable. NEUROLOGICAL: Awake and alert. No obvious cranial nerve deficits. Motor grossly within normal limits. Normal speech. PSYCHIATRIC: Appropriate mood and affect; insight and judgment normal. Data Data Last Documented VS Vital Signs Date Time Temp Pulse Resp B/P Pulse Ox O2 Delivery O2 Flow Rate FiO2 07/12/17 02:49 14 07/12/17 02:18 97.9 85 141/85 98 Room Air MDM Medical Decision Making Medical Screen Exam Complete: Yes Emergency Medical Condition: Yes Medical Record Reviewed: Yes Differential Diagnosis Alcohol intoxication vs psychosis vs drug overdose Narrative Course Patient is a 31 year old male who comes in because he wants to get back on his psychiatric medications. He has no medical complaints. He is drunk. He will be allowed to sleep until sober. He has a bus pass to get to [facility] Diagnosis Primary Impression: Alcohol intoxication Qualified Code: F10.920 - Alcoholic intoxication without complication Referrals: [facility] for appointment Patient Instructions: Alcohol Intoxication (ED), General Instructions Additional Instructions: Follow up with [facility]. Avoid alcohol use. Return to the ED as needed for any worsening symptoms. Scripts No Active Prescriptions or Reported Meds Disposition: 01 DISCHARGE HOME Condition: Stable Tricia Galo MD Jul 12, 2017 03:40
== END 2017-07-12 06:30 | disposition home or self-care (01) ==
LOC: NEPC 02:15
DX: F10.129 Alcohol abuse with intoxication, unspecified (principal); F31.9 Bipolar disorder, unspecified; F43.10 Post-traumatic stress disorder, unspecified; F17.200 Nicotine dependence, unspecified, uncomplicated
CPT/HCPCS: 99281

== ENCOUNTER 2017-08-15 22:38 | Emergency (ER) | payer OTHER ==
[~2017-08-15] VITALS: Ht 185.4 cm; Wt 80.0 kg
[2017-08-15 22:46] VITALS: BP 118/58; PULSE 134; RESP 18; TEMP 99.1; O2SAT 95
[2017-08-15] MEDS ORDERED: SERT-132 PO (22:54)
[2017-08-15] MEDS ORDERED: QUET5TAB PO (22:54)
[2017-08-15] MEDS ORDERED: PRAZ2CAP PO (22:54)
[2017-08-15] MEDS ORDERED: ACTIVATED CHARCOAL LIQUID 25 GM/120 ML BTL PO ONE (23:15)
[2017-08-15] MEDS ORDERED: SODIUM CHLOR 0.9% 1000 ML INJ 1,000 ML IV ONE (23:15)
[2017-08-15 23:38] LABS: AUTOMATED NEUTROPHIL # 4.4 TH/MM3 (1.8-7.7); BASOPHIL % 0.2 % (0.0-2.0); EOSINOPHIL # 0.1 TH/MM3 (0-0.4); EOSINOPHIL % 1.3 % (0.0-4.0); HEMATOCRIT 40.9 % (39.0-51.0); HEMO FLAGS DIFF FINAL; LYMPHOCYTE # 2.8 TH/MM3 (1.0-4.8); MEAN CORPUSCULAR HEMOGLOBIN 32.9 PG (27.0-34.0); MEAN CORPUSCULAR HGB CONC 34.6 % (32.0-36.0); MONO % 5.2 % (0.0-8.0); NEUT % 57.3 % (16.0-70.0); PLATELET COUNT 224 TH/MM3 (150-450); RED BLOOD COUNT 4.31 MIL/MM3 (4.50-5.90); RED CELL DISTRIBUTION WIDTH 13.4 % (11.6-17.2); WHITE BLOOD COUNT 7.6 TH/MM3 (4.0-11.0)
[2017-08-16] VITALS (7 sets, daily range): BP systolic 120–136; BP diastolic 65–88; PULSE 72–110; RESP 14–18; TEMP 98.2; O2SAT 96–100
[2017-08-16] LABS: ALKALINE PHOSPHATASE 52 U/L (45-117); TOTAL BILIRUBIN ADULT 0.3 MG/DL (0.2-1.0)
[2017-08-16 00:01] LABS: ALCOHOL 185 MG/DL (0-5); ALT (GPT) 34 U/L (12-78); ANION GAP 11 MEQ/L (5-15); AST (GOT) 23 U/L (15-37); BICARBONATE 23.4 MEQ/L (21.0-32.0); BLOOD UREA NITROGEN 15 MG/DL (7-18); CHLORIDE 108 MEQ/L (98-107); GLOMERULAR FILTRATION RATE 79 ML/MIN (>89); POTASSIUM 3.6 MEQ/L (3.5-5.1); SODIUM (NA) 142 MEQ/L (136-145)
[2017-08-16 00:02] LABS: ACETAMINOPHEN LESS THAN 2.0 MCG/ML (10.0-30.0)
--- NOTE | 2017-08-16 01:20 | PD ---
HPI Chief Complaint: OD/ Ingestion Time Seen by Provider: 22:59 Travel History International Travel<30 days: No Contact w/Intl Traveler<30days: No Traveled to known affect area: No History of Present Illness HPI Patient is a 31 year old male, brought in under a BA, after he took 21 50mg Seroquel with the intention of killing himself. He was recently admitted to [facility] and was released yesterday. He says he just can't handle life anymore so he tried to kill himself. He called 08-01- because he started to have pain. He denies any other ingestions. He denies SOB, nausea or vomiting. PFSH Past Medical History Bipolar Disorder: Yes Anxiety: Yes Depression: Yes Diminished Hearing: No Musculoskeletal: Yes (BACK PROBLEMS) Psychiatric: Yes (PTSD) Social History Alcohol Use: Yes (" MUCH I CAN") Tobacco Use: Yes (1PPD OR MORE) Substance Use: Yes ("ETOH, POT, DILAUDID, METH, CRACK") Allergies-Medications (Allergen,Severity, Reaction): Coded Allergies: No Known Allergies (Verified , 08/15/17) Reported Meds & Prescriptions Reported Meds & Active Scripts Active Reported Quetiapine (Quetiapine Fumarate) 50 Mg Tab 50 Mg PO HS Prazosin (Prazosin HCl) 2 Mg Cap 2 Mg PO HS Sertraline (Sertraline HCl) 50 Mg Tab 50 Mg PO DAILY Review of Systems Except as stated in HPI: all other systems reviewed are Neg General / Constitutional: No: Fever, Chills Eyes: No: Blurred Vision HENT: No: Headaches Respiratory: No: Shortness of Breath Gastrointestinal: No: Abdominal Pain Genitourinary: No: Dysuria Musculoskeletal: No: Pain Skin: No Rash, No Change in Pigmentation Psychiatric: Positive: Depression, Suicidal Ideations Physical Exam Narrative GENERAL: Awake and alert, in no acute distress. SKIN: Focused skin assessment warm/dry. HEAD: Atraumatic. Normocephalic. EYES: Pupils equal and round. No scleral icterus. No injection or drainage. ENT: Mucous membranes pink and moist. NECK: Trachea midline. No JVD. CARDIOVASCULAR: Tachycardia. No murmur appreciated. RESPIRATORY: No accessory muscle use. Clear to auscultation. Breath sounds equal bilaterally. GASTROINTESTINAL: Abdomen soft, non-tender, nondistended. MUSCULOSKELETAL: No obvious deformities. No clubbing. No cyanosis. No edema. NEUROLOGICAL: Awake and alert. No obvious cranial nerve deficits. Motor grossly within normal limits. Normal speech. PSYCHIATRIC: Appropriate mood and affect; insight and judgment normal. Data Data Last Documented VS Vital Signs Date Time Temp Pulse Resp B/P (MAP) Pulse Ox O2 Delivery O2 Flow Rate FiO2 08/15/17 22:46 99.1 134 18 118/58 (78) 95 Orders Orders Complete Blood Count With Diff (08/15/17 23:03) Comprehensive Metabolic Panel (08/15/17 23:03) Psych Screen (08/15/17 23:03) Drug Screen, Random Urine (08/15/17 23:03) Alcohol (Ethanol) (08/15/17 23:03) Salicylates (Aspirin) (08/15/17 23:03) Tylenol (Acetaminophen) (08/15/17 23:03) Iv Access Insert/Monitor (08/15/17 23:03) Sodium Chlor 0.9% 1000 Ml Inj (Ns 1000 M (08/15/17 23:15) Charcoal Activated Liq (Actidose-Aqua Li (08/15/17 23:15) Electrocardiogram (08/16/17 ) Labs Laboratory Tests Test 08/15/17 23:15 08/15/17 23:20 White Blood Count 7.6 TH/MM3 Red Blood Count 4.31 MIL/MM3 Hemoglobin 14.2 GM/DL Hematocrit 40.9 % Mean Corpuscular Volume 95.0 FL Mean Corpuscular Hemoglobin 32.9 PG Mean Corpuscular Hemoglobin Concent 34.6 % Red Cell Distribution Width 13.4 % Platelet Count 224 TH/MM3 Mean Platelet Volume 6.4 FL Neutrophils (%) (Auto) 57.3 % Lymphocytes (%) (Auto) 36.0 % Monocytes (%) (Auto) 5.2 % Eosinophils (%) (Auto) 1.3 % Basophils (%) (Auto) 0.2 % Neutrophils # (Auto) 4.4 TH/MM3 Lymphocytes # (Auto) 2.8 TH/MM3 Monocytes # (Auto) 0.4 TH/MM3 Eosinophils # (Auto) 0.1 TH/MM3 Basophils # (Auto) 0.0 TH/MM3 CBC Comment DIFF FINAL Differential Comment Blood Urea Nitrogen 15 MG/DL Creatinine 1.08 MG/DL Random Glucose 146 MG/DL Total Protein 7.5 GM/DL Albumin 3.7 GM/DL Calcium Level 8.3 MG/DL Alkaline Phosphatase 52 U/L Aspartate Amino Transf (AST/SGOT) 23 U/L Alanine Aminotransferase (ALT/SGPT) 34 U/L Total Bilirubin 0.3 MG/DL Sodium Level 142 MEQ/L Potassium Level 3.6 MEQ/L Chloride Level 108 MEQ/L Carbon Dioxide Level 23.4 MEQ/L Anion Gap 11 MEQ/L Estimat Glomerular Filtration Rate 79 ML/MIN Salicylates Level 3.5 MG/DL Acetaminophen Level LESS THAN 2.0 MCG/ML Ethyl Alcohol Level 185 MG/DL Urine Opiates Screen NEG Urine Barbiturates Screen NEG Urine Amphetamines Screen NEG Urine Benzodiazepines Screen NEG Urine Cocaine Screen NEG Urine Cannabinoids Screen POS MDM Medical Decision Making Medical Screen Exam Complete: Yes Emergency Medical Condition: Yes Medical Record Reviewed: Yes Interpretation(s) ECG shows sinus tachycardia, no QT prolongation Differential Diagnosis ingestion vs overdose vs intoxication vs suicide attempt Narrative Course Patient is a 31 year old male who comes in after he intentionally took 21 Seroquel to kill himself. Exam shows tachycardia. IV established, labs sent. Labs show no abnormalities. Poison control contacted, suggest observation for 6- 8 hrs. ECG shows no evidence of QT prolongation. Patient is awake and alert, protecting his airway. Given activated charcoal. Given IVF. Observed in the ED and then cleared to be seen by psychiatry. Diagnosis Primary Impression: Suicidal ideation Additional Impression: Overdose Qualified Codes: T50.902A - Poisoning by unspecified drugs, medicaments and biological substances, intentional self-harm, initial encounter Tricia Galo MD Aug 16, 2017 01:19
--- NOTE | 2017-08-16 09:11 | EKG ---
Date Performed: 08/16/2017 Time Performed: 01:39:21 PTAGE: 31 years EKG: SINUS TACHYCARDIA ABNORMAL RHYTHM ECG No significant change from prior electrocardiogram. PREVIOUS TRACING : 08/15/2017 22.49 DOCTOR: River Zaldivar Interpretating Date/Time 08/16/2017 09:09:09
--- NOTE | 2017-08-16 09:14 | EKG ---
Date Performed: 08/15/2017 Time Performed: 22:49:48 PTAGE: 31 years EKG: SINUS TACHYCARDIA Mild ST DEPRESSION ABNORMAL ECG Compared to prior electrocardiogram, rate has increased , possible anterior ST elevation no longer present. PREVIOUS TRACING : 05/27/2008 04.21 DOCTOR: River Zaldivar Interpretating Date/Time 08/16/2017 09:13:31
--- NOTE | 2017-08-16 12:07 | PD ---
Physical Exam Date Seen by Provider: Aug 16, 2017 Time Seen by Provider: 12:05 Narrative This is a 31-year-old male who was Jacinto acted after ingesting alcohol and Seroquel. The patient stated he had taken 21 cervical tablets. The patient was seen and evaluated by Dr. Tricia Treviño earlier. He was medically cleared for psychiatric evaluation. Patient notes psychiatric unit evaluation has taken place in the Jacinto act is lifted. Data Data Last Documented VS Vital Signs Date Time Temp Pulse Resp B/P (MAP) Pulse Ox O2 Delivery O2 Flow Rate FiO2 08/16/17 06:17 77 16 120/76 (91) 99 Room Air 08/15/17 22:46 99.1 Orders Orders Complete Blood Count With Diff (08/15/17 23:03) Comprehensive Metabolic Panel (08/15/17 23:03) Psych Screen (08/15/17 23:03) Drug Screen, Random Urine (08/15/17 23:03) Alcohol (Ethanol) (08/15/17 23:03) Salicylates (Aspirin) (08/15/17 23:03) Tylenol (Acetaminophen) (08/15/17 23:03) Iv Access Insert/Monitor (08/15/17 23:03) Sodium Chlor 0.9% 1000 Ml Inj (Ns 1000 M (08/15/17 23:15) Charcoal Activated Liq (Actidose-Aqua Li (08/15/17 23:15) Electrocardiogram (08/16/17 ) Electrocardiogram (08/15/17 22:49) Labs Laboratory Tests Test 08/15/17 23:15 08/15/17 23:20 White Blood Count 7.6 TH/MM3 Red Blood Count 4.31 MIL/MM3 Hemoglobin 14.2 GM/DL Hematocrit 40.9 % Mean Corpuscular Volume 95.0 FL Mean Corpuscular Hemoglobin 32.9 PG Mean Corpuscular Hemoglobin Concent 34.6 % Red Cell Distribution Width 13.4 % Platelet Count 224 TH/MM3 Mean Platelet Volume 6.4 FL Neutrophils (%) (Auto) 57.3 % Lymphocytes (%) (Auto) 36.0 % Monocytes (%) (Auto) 5.2 % Eosinophils (%) (Auto) 1.3 % Basophils (%) (Auto) 0.2 % Neutrophils # (Auto) 4.4 TH/MM3 Lymphocytes # (Auto) 2.8 TH/MM3 Monocytes # (Auto) 0.4 TH/MM3 Eosinophils # (Auto) 0.1 TH/MM3 Basophils # (Auto) 0.0 TH/MM3 CBC Comment DIFF FINAL Differential Comment Blood Urea Nitrogen 15 MG/DL Creatinine 1.08 MG/DL Random Glucose 146 MG/DL Total Protein 7.5 GM/DL Albumin 3.7 GM/DL Calcium Level 8.3 MG/DL Alkaline Phosphatase 52 U/L Aspartate Amino Transf (AST/SGOT) 23 U/L Alanine Aminotransferase (ALT/SGPT) 34 U/L Total Bilirubin 0.3 MG/DL Sodium Level 142 MEQ/L Potassium Level 3.6 MEQ/L Chloride Level 108 MEQ/L Carbon Dioxide Level 23.4 MEQ/L Anion Gap 11 MEQ/L Estimat Glomerular Filtration Rate 79 ML/MIN Salicylates Level 3.5 MG/DL Acetaminophen Level LESS THAN 2.0 MCG/ML Ethyl Alcohol Level 185 MG/DL Urine Opiates Screen NEG Urine Barbiturates Screen NEG Urine Amphetamines Screen NEG Urine Benzodiazepines Screen NEG Urine Cocaine Screen NEG Urine Cannabinoids Screen POS MDM Medical Record Reviewed: Yes Supervised Visit with VICKEY: No Narrative Course 31-year-old male placed under [employer] act after ingesting Seroquel. Patient has been seen and evaluated by psychiatrist. The patient has been lifted from his Jacinto act. The patient will follow up with [facility]. He is amenable to this at this time. Diagnosis Primary Impression: Suicidal ideation Additional Impressions: Overdose Qualified Codes: T50.902A - Poisoning by unspecified drugs, medicaments and biological substances, intentional self-harm, initial encounter Alcohol abuse Referrals: [facility] Additional Instruction: Avoid alcohol. Take medication as prescribed. Disposition: 01 DISCHARGE HOME Condition: Stable Constantine Bautista MD Aug 16, 2017 12:07
--- NOTE | 2017-08-16 13:07 | PD.PSY.CON ---
Provisional Diagnosis Admission Date [place]. Alcohol induced mood disorder, cannabis use disorder, alcohol use disorder, self reported PTSD [place] [facility]. Antisocial personality disorder [place] [facility]. No significant medical history History of Present Illness Service Psychiatry Consult Requested By Reason for Consult Suicidal attempt Primary Care Physician No Primary Care Physician HPI The patient is a 31 year old man, self reported homeless, unemployed, with psychiatric history of PTSD, alcohol induced mood disorder, alcohol and cannabis use disorder, antisocial personality disorder, multiple psychiatric hospitalizations, multiple ER visits with alcohol related problems, he was just discharged from [facility] today, no significant medical history, who brought in under a BA, after he took 21 50mg Seroquel with the intention of killing himself. He was recently admitted to [facility] and was released yesterday. He says he just can't handle life anymore so he tried to kill himself. He called because he started to have pain. He denies any other ingestions. He denies SOB , nausea or vomiting. On psychiatric evaluation today patient is irritable, demanding to be discharged. When I asked him about previous suicidal attempt he says that he was drunk and he did not overdose with Seroquel. At this moment patient denies suicidal and homicidal ideation, he denies visual and auditory hallucinations. Patient is verbally hostile, agitated, but redirectable. Since no QTc interval condition was recorded, vital signs has been always stable, his most probably 2 the patient did not overdose Review of Systems Endocrine: DENIES: Heat/cold intolerance, Polydipsia, Polyuria, Polyphagia Eyes: DENIES: Blurred vision, Diplopia, Eye inflammation, Eye pain, Vision loss , Photosensitivity, Double Vision Ears, nose, mouth, throat: DENIES: Tinnitus, Hearing loss, Vertigo, Nasal discharge, Oral lesions, Throat pain, Hoarseness, Ear Pain, Running Nose, Epistaxis, Sinus Pain, Toothache, Odynophagia Respiratory: DENIES: Apneas, Cough, Snoring, Wheezing, Hemoptysis, Sputum production, Shortness of breath Cardiovascular: DENIES: Chest pain, Palpitations, Syncope, Dyspnea on Exertion , PND, Lower Extremity Edema, Orthopnea, Claudication Gastrointestinal: DENIES: Abdominal pain, Black stools, Bloody stools, Constipation, Diarrhea, Nausea, Vomiting, Difficulty Swallowing, Anorexia Musculoskeletal: DENIES: Joint pain, Muscle aches, Stiffness, Joint Swelling, Back pain, Neck pain Integumentary: DENIES: Abnormal pigmentation, Nail changes, Pruritus, Rash Hematologic/lymphatic: DENIES: Bruising, Lymphadenopathy Immunologic/allergic: DENIES: Eczema, Urticaria Neurologic: DENIES: Abnormal gait, Headache, Localized weakness, Paresthesias, Seizures, Speech Problems, Tremor, Poor Balance Past Family Social History Coded Allergies: No Known Allergies (Verified , 08/15/17) Reported Medications Quetiapine (Quetiapine) 50 Mg Tab, 50 MG PO HS, #30 TAB 0 Refills 08/15/17 Prazosin (Prazosin) 2 Mg Cap, 2 MG PO HS for Blood Pressure Management, #60 CAP 0 Refills 08/15/17 Sertraline (Sertraline) 50 Mg Tab, 50 MG PO DAILY, #30 TAB 0 Refills 08/15/17 Physical Exam Vital Signs Vital Signs Date Time Temp Pulse Resp B/P (MAP) Pulse Ox O2 Delivery O2 Flow Rate FiO2 08/16/17 06:17 77 16 120/76 (91) 99 Room Air 08/15/17 22:46 99.1 I/O 08/16/17 08/16/17 08/17/17 08:00 16:00 00:00 Intake Total 1000 ml Balance 1000 ml Lab Results Test 08/15/17 23:15 08/15/17 23:20 White Blood Count 7.6 TH/MM3 Red Blood Count 4.31 MIL/MM3 Hemoglobin 14.2 GM/DL Hematocrit 40.9 % Mean Corpuscular Volume 95.0 FL Mean Corpuscular Hemoglobin 32.9 PG Mean Corpuscular Hemoglobin Concent 34.6 % Red Cell Distribution Width 13.4 % Platelet Count 224 TH/MM3 Mean Platelet Volume 6.4 FL Neutrophils (%) (Auto) 57.3 % Lymphocytes (%) (Auto) 36.0 % Monocytes (%) (Auto) 5.2 % Eosinophils (%) (Auto) 1.3 % Basophils (%) (Auto) 0.2 % Neutrophils # (Auto) 4.4 TH/MM3 Lymphocytes # (Auto) 2.8 TH/MM3 Monocytes # (Auto) 0.4 TH/MM3 Eosinophils # (Auto) 0.1 TH/MM3 Basophils # (Auto) 0.0 TH/MM3 CBC Comment DIFF FINAL Differential Comment Blood Urea Nitrogen 15 MG/DL Creatinine 1.08 MG/DL Random Glucose 146 MG/DL Total Protein 7.5 GM/DL Albumin 3.7 GM/DL Calcium Level 8.3 MG/DL Alkaline Phosphatase 52 U/L Aspartate Amino Transf (AST/SGOT) 23 U/L Alanine Aminotransferase (ALT/SGPT) 34 U/L Total Bilirubin 0.3 MG/DL Sodium Level 142 MEQ/L Potassium Level 3.6 MEQ/L Chloride Level 108 MEQ/L Carbon Dioxide Level 23.4 MEQ/L Anion Gap 11 MEQ/L Estimat Glomerular Filtration Rate 79 ML/MIN Salicylates Level 3.5 MG/DL Acetaminophen Level LESS THAN 2.0 MCG/ML Ethyl Alcohol Level 185 MG/DL Urine Opiates Screen NEG Urine Barbiturates Screen NEG Urine Amphetamines Screen NEG Urine Benzodiazepines Screen NEG Urine Cocaine Screen NEG Urine Cannabinoids Screen POS Mental Status Examination Speech: Unremarkable Orientation: x3 Memory: Unremarkable Thought Process: Logical Thought Content: Unremarkable Hallucination Type: None Suicidal Ideation: No Previous Suicide Attempts: No Homicidal Ideation: No Previous Homicide Attempts: No Insight: Fair Affect: Irritable Mood: Angry Motor Activity: Normal gait Assessment & Plan Problem List: (1) Alcohol abuse with alcohol-induced mood disorder ICD Codes: F10.14 - Alcohol abuse with alcohol-induced mood disorder Assessment & Plan: At the moment of this evaluation the patient denies depressive symptoms, he denies anxiety, he denies perceptual disturbances. I suicidal and homicidal ideation, he denies visual and auditory hallucinations. Patient is irritable, verbally hostile, requesting to be discharged. He denies previous overdose with Seroquel. She is vital times are stable, patient did not recent any symptomatology of intoxication, is highly probable that he used a suicidal statement and "attempts"with malicious simulation with secondary gain of using the hospital as a care home. Patient does not meet criteria for psychiatric admission. Patient does have very visible antisocial personality traits. Brief supportive psychotherapy provided. Education provided. Jacinto act will be lifted. Assessment & Plan Estimated LOS: Jeff Alberto MD Aug 16, 2017 13:07
== END 2017-08-16 14:07 | disposition home or self-care (01) ==
LOC: NEPC 22:38
DX: T43.592A Poisoning by other antipsychotics and neuroleptics, intentional self-harm, initial encounter (principal); R00.0 Tachycardia, unspecified; F10.10 Alcohol abuse, uncomplicated; Y90.6 Blood alcohol level of 120-199 mg/100 ml
CPT/HCPCS: 80053; 80307; 85025; 93005; 96360; 96361; 99284; J7030